=== PATIENT | male | born 1940 | race Caucasian/White ===

== ENCOUNTER → 2016-09-25 | Outpatient (CLI) | payer OTHER, MEDICARE ==
[~2016-09-25] MED LIST: ASCO10003 PO; ASPEC81 PO; ATOR-22 PO; CALC500C70 PO; CLR10 PO; LEUP1INJ6 IM; LOSA100T65 PO; MULT-513 PO; OPTIRAY 320 IV PRN; PRLSR20 PO
--- NOTE | 2016-09-25 13:41 | DIAGNOSTIC IMAGING REPORT ---
CT CHEST COMBO ANGIOGRAPHY CT DOSE: 1431.89 mGycm CLINICAL HISTORY: Ascending aortic dilation. TECHNIQUE: Unenhanced and arterial phase images of the chest were obtained. Injection of 93 cc of Optiray 320 IV was uneventful. Sagittal and coronal reconstructed reviewed as well as maximal intensity projections on an independent 3-D workstation. COMPARISON STUDY: CTA of the chest March 24, 2016. FINDINGS: No enlarged axillary, mediastinal or hilar lymph nodes are present. The heart is moderately enlarged. There is no pericardial effusion. Note is made of moderate dilatation of the ascending aorta which measures 4.7 cm at the level the main pulmonary artery. This is unchanged since CT of March 24, 2016. There is no evidence for dissection. The aorta measures 4.7 cm at the level of the sinuses of Valsalva. The caliber of the descending thoracic aorta is normal. Mild dilatation of the central pulmonary arteries is again noted. Mild groundglass opacities within lungs favor atelectasis. There is no consolidation to suggest pneumonia. Central airways are patent. Bony thorax and upper abdomen are unremarkable. IMPRESSION: 1. No change in moderate dilatation of the ascending aorta since CT of March 24, 2016. Ascending aorta measures 4.7 cm at the level of the main pulmonary artery. No dissection. 2. Moderate cardiomegaly. Electronically signed by: He Lobo M.D. 09/25/2016 1:40 PM Dictated Date/Time: 09/25/2016 1:26 PM
== END | disposition home or self-care (01) ==
LOC: C.CTS 12:47
PROVIDERS: ATTEND Internal Medicine Interventional Cardiology
DX: I77.810 Thoracic aortic ectasia (principal)